=== PATIENT | female | born 1950 | race Caucasian/White ===

== ENCOUNTER 2023-08-09 14:11 | Inpatient (IN) | payer OTHER ==
[2023-08-09] MEDS ORDERED: ASPIRIN 81 MG CHEWABLE TABLET ONE (14:37)
[2023-08-09 14:40] LABS: Absolute Eosinophils 0.3 K/uL (0-0.5); Absolute Lymphocytes (CBC) 1.7 K/uL (0.7-4.9); Absolute Monocytes 0.9 K/uL (0.1-1.3); Basophils % 0.6 % (0-1.3); Eosinophils % 3.4 % (0-4.4); Hematocrit 39.7 % (36.0-45.0); Lymphocytes % 21.5 % (15.3-44.8); MCH 29.2 pg (27.0-35.0); MCHC 32.8 g/dL (32.0-36.0); MCV 89.1 fL (80-100); MPV 8.9 fL (7.6-11.3); Neutrophils % 63.5 % (41.7-73.7); Nucleated Red Blood Cells % 0.2 % (0-0); Platelets 121 thou/uL (152-406); RBC Red Blood Cell Count 4.46 M/uL (3.86-4.86); Red Cell Distribution Width 15.5 % (12.1-15.2)
[2023-08-09 14:59] LABS: Anion Gap 9.3 mEq/L (5.0-15.0)
[2023-08-09 15:01] LABS: Potassium 3.3 mEq/L (3.5-5.1)
--- NOTE | 2023-08-09 15:54 | RAD REPORT ---
EXAM DESCRIPTION: CT - Chest For Pe Angio - 08/09/2023 3:21 pm CLINICAL HISTORY: Chest pain COMPARISON: None. TECHNIQUE: Dynamically enhanced axial 3 mm thick images of the chest were obtained during administra tion of 100 mL Isovue 370 IV contrast. Coronal and oblique reconstruction images were generated and r eviewed. Exam utilizes a protocol for optimal evaluation of pulmonary arterial tree. Maximum intensity projections 3D imaging was utilized All CT scans are performed using dose optimization technique as appropriate and may include automated exposure control or mA/KV adjustment according to patient size. FINDINGS: A pulmonary embolus is not seen. A thoracic aortic aneurysm is not noted. A pleural effusion is not seen. A pericardial effusion is not seen. A lung consolidation is not present. A cirrhotic liver. Splenomegaly IMPRESSION: Negative for a pulmonary embolism.
--- NOTE | 2023-08-09 16:31 | RAD REPORT ---
EXAM DESCRIPTION: Anuel Single View08/09/2023 2:53 pm CLINICAL HISTORY: Chest pain COMPARISON: 2010 FINDINGS: The lungs appear clear of acute infiltrate. The heart is moderately enlarged IMPRESSION: No acute abnormalities displayed
--- NOTE | 2023-08-09 16:49 | EDPHYS ---
Physician Documentation [facility] Name: Liana Mcdonald Age: 72 yrs Sex: Female : 1950 Arrival Date: 08/09/2023 Time: 14:11 Bed 17 Private MD: ED Physician Matthias Ayala HPI: 08/08 14:35 This 72 yrs old Female presents to ER via EMS with complaints of Chest Pain. ec2 14:35 Patient arrives today for evaluation of left-sided intermittent chest pain ongoing for ec2 several weeks along with left arm numbness. Patient reports the left arm numbness started this afternoon. Patient reports no falls injuries or trauma. Complains of some tingling associated with this as well. Patient reports no difficulty breathing, no leg swelling. Patient reports history of hypertension, no known cardiac disease.. Historical: - Allergies: 14:25 No Known Allergies; jl7 - Home Meds: 14:25 None [Active]; jl7 - PMHx: 14:25 Hypertensive disorder; jl7 - Immunization history:: Adult Immunizations unknown. - Infectious Disease History:: Denies. - Social history:: Smoking status: Patient denies any tobacco usage or history of. ROS: 14:35 Constitutional: as per hpi ec2 Exam: 14:35 Constitutional: GEN: NAD Head: atraumatic Eyes: EOMI Ears: External ears are ec2 normal. CV: regular rate LUNGS: no respiratory distress ABD: non-distended SKIN: no evidence of rashes MSK: no evidence of trauma NEURO: moves all extremities equally Vital Signs: 14:23 BP 174 / 77; Pulse 99; Resp 19; Pulse Ox 97% ; Weight 87.09 kg; Height 5 ft. 3 in. ; jl7 Pain 8/10; 14:54 BP 151 / 77; Pulse 94; Resp 19 S; Pulse Ox 94% on R/A; kc6 15:36 BP 206 / 79; Pulse 84; Resp 18 S; Pulse Ox 94% on R/A; kc6 16:10 BP 157 / 72; kc6 17:23 BP 155 / 68; Pulse 90; Resp 19 S; Pulse Ox 98% on R/A; kc6 18:35 BP 151 / 71; Pulse 92; Resp 19 S; Pulse Ox 95% on R/A; kc6 14:23 Body Mass Index 34.01 (87.09 kg, 160.02 cm) jl7 14:23 Pain Scale: Adult jl7 MDM: 14:35 Patient medically screened. ec2 14:35 Data reviewed: vital signs. ED course: Patient arrives today for evaluation of chest ec2 pain and left arm numbness. Examination remarkable for well-appearing nontoxic individual who is otherwise in no acute distress. Obtain lab work, EKG, chest x-ray and CT scan. Evaluating for ACS, PE, dissection. Offered the patient IV pain medications such as morphine however the patient declined at this time and will reconsider if pain changes.. 14:36 ED course: EKG independently reviewed and interpreted by me, shows normal sinus rhythm, ec2 rate of 97, no acute ST segment elevations, intervals are nonconcerning, PVC noted, ST depression noted in V2.. 15:11 ED course: Metabolic profile shows slight hypokalemia, CBC is reassuring, troponin is ec2 within normal ranges. Pending CT imaging and chest x-ray. . 15:11 ED course: Chest x-ray independently reviewed and interpreted by me, shows no acute ec2 intrathoracic process.. 16:40 ED course: CT scan of the chest shows no acute intrathoracic process.. ec2 16:48 ED course: On reassessment patient remains with some residual left arm discomfort. Will ec2 admit for further cardiac evaluation. Discussed case with hospitalist, pending admission. . 16:49 HEART Score: History: Slightly Suspicious (0), ECG: Non specific repolarization ec2 disturbance / LBTB / PM (1), Age: > or = 65 years (2), Risk Factors: > or = 3 Risk factors for atherosclerotic disease (2), Troponin: < or = 1 x Normal Limit (0), Total Score = 5. 08/08 14:27 Order name: Basic Metabolic Panel; Complete Time: 15:11 ec2 08/08 14:27 Order name: CBC with Diff; Complete Time: 15:11 ec2 08/08 14:27 Order name: Troponin HS; Complete Time: 15:11 ec2 08/08 18:21 Order name: Magnesium EDMS 08/08 18:21 Order name: Magnesium EDMS 08/08 18:21 Order name: [place] Screen EDMS 08/08 18:21 Order name: NT PRO-BNP EDMS 08/08 18:21 Order name: Protime (+INR) EDMS 08/08 18:21 Order name: PTT, Activated Partial Thromb EDMS 08/08 18:21 Order name: Thyroid Stimulating Hormone EDMS 08/08 18:21 Order name: CBC with Automated Diff EDMS 08/08 18:21 Order name: CBC with Automated Diff EDMS 08/08 18:21 Order name: CBC with Automated Diff EDMS 08/08 18:21 Order name: CBC with Automated Diff EDMS 08/08 18:21 Order name: CBC with Automated Diff EDMS 08/08 18:21 Order name: Comprehensive Metabolic Panel EDMS 08/08 18:21 Order name: Comprehensive Metabolic Panel EDMS 08/08 18:21 Order name: Comprehensive Metabolic Panel EDMS 08/08 18:21 Order name: Comprehensive Metabolic Panel EDMS 08/08 18:21 Order name: Comprehensive Metabolic Panel EDMS 08/08 18:21 Order name: Lipid Profile EDMS 08/08 18:21 Order name: Lipid Profile EDMS 08/08 18:21 Order name: Troponin High Sensitivity EDMS 08/08 18:21 Order name: Troponin High Sensitivity EDMS 08/08 18:21 Order name: Troponin High Sensitivity EDMS 08/08 14:27 Order name: XRAY Chest (1 view); Complete Time: 16:40 ec2 08/08 14:35 Order name: CT Chest For PE Angio; Complete Time: 16:40 ec2 08/08 18:21 Order name: Head Brain Wo Cont EDMS 08/08 18:21 Order name: Echo with Doppler EDMS 08/08 18:21 Order name: Carotid Artery Bilateral EDMS 08/08 14:27 Order name: EKG; Complete Time: 14:28 ec2 08/08 18:21 Order name: CONS Physician Consult EDMS 08/08 14:27 Order name: Cardiac monitoring; Complete Time: 14:29 ec2 08/08 14:27 Order name: EKG - Nurse/Tech; Complete Time: 14:29 ec2 08/08 14:27 Order name: IV Saline Lock; Complete Time: 14:31 ec2 08/08 14:27 Order name: Labs collected and sent; Complete Time: 14:31 ec2 08/08 14:27 Order name: O2 Per Protocol; Complete Time: 14:29 ec2 08/08 14:27 Order name: O2 Sat Monitoring; Complete Time: 14:29 ec2 Administered Medications: 14:47 Drug: Aspirin PO Chewable Tablet 324 mg PO once; 81 mg tablets x 4 Route: PO; jl7 15:36 Follow up: Response: No adverse reaction kc6 Disposition Summary: 08/09/23 16:48 Hospitalization Ordered Notes: Hospitalization Status: Inpatient Admission ec2 Provider: Jori Stauffer ec2 Location: Telemetry/MedSurg (observation) ec2 Condition: Stable ec2 Problem: new ec2 Symptoms: are unchanged ec2 Bed/Room Type: Standard ec2 Room Assignment: 207(08/09/23 18:22) eb Diagnosis - Chest pain, unspecified ec2 Forms: - Medication Reconciliation Form ec2 - SBAR form ec2 - Leadership Thank You Letter ec2 Signatures: Dispatcher [employer] Mazin Cuevas RN RN jl7 Jaci Cobb Edwin, MD MD ec2 Arcelia Fontanez RN kc6 Corrections: (The following items were deleted from the chart) 16:50 14:36 ED course: EKG independently reviewed and interpreted by me, shows normal sinus ec2 rhythm, rate of 97, no acute ST segment elevations, intervals are nonconcerning, PVC noted. . ec2 18:22 16:48 ec2 eb
--- NOTE | 2023-08-09 16:49 | ER ---
Nurse's Notes [facility] Name: Liana Mcdonald Age: 72 yrs Sex: Female : 1950 Arrival Date: 08/09/2023 Time: 14:11 Bed 17 Private MD: Diagnosis: Chest pain, unspecified Presentation: 08/08 14:23 Chief complaint: EMS states: Left sided CP x 3 days with Left sided arm numbness and jl7 tingling. rated 8/10 at this time. Coronavirus screen: At this time, the client does not indicate any symptoms associated with coronavirus-19. Ebola Screen: No symptoms or risks identified at this time. Initial Sepsis Screen: Does the patient meet any 2 criteria? No. Patient's initial sepsis screen is negative. Does the patient have a suspected source of infection? No. Patient's initial sepsis screen is negative. Risk Assessment: Do you want to hurt yourself or someone else? Patient reports no desire to harm self or others. Onset of symptoms was August 06, 2023. Care prior to arrival: None. 14:23 Method Of Arrival: EMS: [facility] jl7 14:23 Acuity: DEMETRIA 2 jl7 Triage Assessment: 14:25 General: Appears in no apparent distress. uncomfortable, Behavior is cooperative, jl7 appropriate for age, anxious. Pain: Complains of pain in anterior aspect of left upper chest Pain radiates to left arm Pain currently is 8 out of 10 on a pain scale. Quality of pain is described as sharp, tingling, Pain began 2-3 days ago. Is continuous. Neuro: Level of Consciousness is awake, alert, obeys commands, Oriented to person, place, time, situation. Cardiovascular: Patient's skin is warm and dry. Respiratory: Airway is patent Respiratory effort is even, unlabored, Respiratory pattern is regular, symmetrical. Derm: Skin is pink, warm \T\ dry. Historical: - Allergies: 14:25 No Known Allergies; jl7 - Home Meds: 14:25 None [Active]; jl7 - PMHx: 14:25 Hypertensive disorder; jl7 - Immunization history:: Adult Immunizations unknown. - Infectious Disease History:: Denies. - Social history:: Smoking status: Patient denies any tobacco usage or history of. Screenin:47 [facility] ED Fall Risk Assessment (Adult) History of falling in the last 3 months, jl7 including since admission No falls in past 3 months (0 pts) Confusion or Disorientation No (0 pts) Intoxicated or Sedated No (0 pts) Impaired Gait No (0 pts) Mobility Assist Device Used No (0 pt) Altered Elimination No (0 pt) Score/Fall Risk Level 0 - 2 = Low Risk Oriented to surroundings, Maintained a safe environment. Abuse screen: Denies threats or abuse. Denies injuries from another. Nutritional screening: No deficits noted. Tuberculosis screening: No symptoms or risk factors identified. Assessment: 14:53 General: Appears in no apparent distress. uncomfortable, well groomed, well developed, kc6 Behavior is calm, cooperative, appropriate for age. Pain: Complains of pain in chest and left arm. Neuro: Level of Consciousness is awake, alert, obeys commands, Oriented to person, place, time, situation, Appropriate for age Reports numbness in left arm paresthesias in left arm. Cardiovascular: Reports chest pain, Denies palpitations, shortness of breath, Heart tones S1 S2 present Capillary refill < 3 seconds Rhythm is sinus rhythm with unifocal PVCs. Respiratory: Airway is patent Trachea midline Respiratory effort is even, unlabored, Respiratory pattern is regular, symmetrical. GI: No signs and/or symptoms were reported involving the gastrointestinal system. : No signs and/or symptoms were reported regarding the genitourinary system. EENT: No signs and/or symptoms were reported regarding the EENT system. Derm: No signs and/or symptoms reported regarding the dermatologic system. Skin is intact, is healthy with good turgor, Skin is pink, warm \T\ dry. Musculoskeletal: No signs and/or symptoms reported regarding the musculoskeletal system. Circulation, motion, and sensation intact. Capillary refill < 3 seconds, Range of motion: intact in all extremities. 15:36 Reassessment: Patient appears in no apparent distress at this time. No changes from kc6 previously documented assessment. Patient and/or family updated on plan of care and expected duration. Pain level reassessed. Patient is alert, oriented x 3, equal unlabored respirations, skin warm/dry/pink. 16:36 Reassessment: Patient appears in no apparent distress at this time. No changes from kc6 previously documented assessment. Patient and/or family updated on plan of care and expected duration. Pain level reassessed. Patient is alert, oriented x 3, equal unlabored respirations, skin warm/dry/pink. 17:23 Reassessment: Patient appears in no apparent distress at this time. No changes from kc6 previously documented assessment. Patient and/or family updated on plan of care and expected duration. Pain level reassessed. Patient is alert, oriented x 3, equal unlabored respirations, skin warm/dry/pink. 18:35 Reassessment: Patient appears in no apparent distress at this time. No changes from kc6 previously documented assessment. Patient and/or family updated on plan of care and expected duration. Pain level reassessed. Patient is alert, oriented x 3, equal unlabored respirations, skin warm/dry/pink. Vital Signs: 14:23 BP 174 / 77; Pulse 99; Resp 19; Pulse Ox 97% ; Weight 87.09 kg; Height 5 ft. 3 in. ; jl7 Pain 8/10; 14:54 BP 151 / 77; Pulse 94; Resp 19 S; Pulse Ox 94% on R/A; kc6 15:36 BP 206 / 79; Pulse 84; Resp 18 S; Pulse Ox 94% on R/A; kc6 16:10 BP 157 / 72; kc6 17:23 BP 155 / 68; Pulse 90; Resp 19 S; Pulse Ox 98% on R/A; kc6 18:35 BP 151 / 71; Pulse 92; Resp 19 S; Pulse Ox 95% on R/A; kc6 14:23 Body Mass Index 34.01 (87.09 kg, 160.02 cm) jl7 14:23 Pain Scale: Adult jl7 ED Course: 14:23 Patient arrived in ED. jl7 14:25 Triage completed. jl7 14:25 Arm band placed on right wrist. EKG completed in triage. Results shown to MD. jl7 14:26 Matthias Ayala MD is Attending Physician. ec2 14:26 Patient has correct armband on for positive identification. Placed in gown. Bed in low jl7 position. Call light in reach. Side rails up X2. Client placed on continuous cardiac and pulse oximetry monitoring. NIBP monitoring applied. monitor technician on. 14:30 Arcelia Fontanez RN is Primary Nurse. kc6 14:30 Inserted saline lock: 20 gauge in right antecubital area, using aseptic technique. kc6 Blood collected. 14:47 Provided Education on: use of call goodwin. jl7 14:55 XRAY Chest (1 view) In Process Unspecified. EDMS 15:23 CT Chest For PE Angio In Process Unspecified. EDMS 16:48 Jori Stauffer MD is Hospitalizing Provider. ec2 17:04 Judith Dickson [facility]-C [facility] Administered Medications: 14:47 Drug: Aspirin PO Chewable Tablet 324 mg PO once; 81 mg tablets x 4 Route: PO; jl7 15:36 Follow up: Response: No adverse reaction kc6 Outcome: 16:48 Decision to Hospitalize by Provider. ec2 19:35 Admitted to Med/surg accompanied by tech, family with patient, via wheelchair, room tl4 207, 19:35 Condition: stable 19:35 Instructed on the need for admit, 19:36 Patient left the ED. tl4 Signatures: Dispatcher [employer] EDWA Judith Dickson FNP-C [employer] SUPER[employer]OR-[employer]nw Mazin Gruber RN RN jl7 Arcelia Fontanez RN RN kc6 Matthias Ayala MD MD ec2 Braden Sue RN RN tl4 Corrections: (The following items were deleted from the chart) 14:48 14:47 O2 via room air jl7 jl7
--- NOTE | 2023-08-09 17:50 | P.HP ---
Certification for Inpatient Patient admitted to: Inpatient With expected LOS: >2 Midnights Patient will require the following post-hospital care: None Practitioner: I am a practitioner with admitting privileges, knowledge of patient current condition, hospital course, and medical plan of care. Services: Services provided to patient in accordance with Admission requirements found in Title 42 Section 412.3 of the Code of Federal Regulations <Judith Dickson - Last Filed: 08/09/23 17:32> Patient History Date of Service: 08/09/23 Primary Care Provider: None Reason for admission: Chest pain History of Present Illness: Ms. Mcdonald is a 72-year-old female with a past medical history of hypertension, probable CHF, and GERD. She has not seen a doctor in greater than 2 years since her PCP retired. She states she does not like to take medicine so has not taken any in several years. She thinks she might of taken metoprolol and Lasix in the past. She and her granddaughter note that she has had an upper respiratory infection over the past week and Ms. Mcdonald notes intermittent left-sided sharp chest pain. She states she becomes sweaty, short of breath, and has nausea and vomiting at the time of chest pain. At 1220 today she awoke and her left arm felt heavy and tingly she states that sensation has not ceased. On exam she is in no distress, appears slightly jaundiced, is persistently coughing, and has mild JVD. Laboratory evaluation in the emergency department revealed a normal CBC except for a slightly decreased platelet count of 121, Chem-7 only remarkable for potassium 3.3, troponin 17. Imaging reveals "the lungs appear clear of acute infiltrate. The heart is moderately enlarged." A PE study was performed and was negative for thrombus but showed splenomegaly and a cirrhotic appearing liver. Ms. Mcdonald states she has never imbibed alcohol or smoked cigarettes and was unaware of any changes in her liver. Her EKG is sinus rhythm with occasional PVCs, of note QTc is 513. She denies palpitations. She will be admitted for further investigation and treatment with consult to cardiology. Home medications list reviewed: Yes (none - occasional BC powder) - Past Medical/Surgical History Has patient received pneumonia vaccine in the past: No Diabetic: No -: HTN -: remote hx of uterine cancer -: hysterectomy with partial colon resection -: Appendectomy Psychosocial/ Personal History: Ms. Mcdonald lives in an elevated home that requires 17 steps to enter. She does have a walker and a cane which she uses occasionally. She lives with her fianc and one of her granddaughters and her children. - Social History Smoking Status: Never smoker Alcohol use: No CD- Drugs: No Caffeine use: Yes Place of Residence: Home <Judith Dicksonlen - Last Filed: 08/09/23 17:32> Date of Service: 08/09/23 <Jori Stauffer - Last Filed: 08/09/23 21:06> Allergies No Known Allergies Allergy (Unverified 08/09/23 19:33) Home Medications: NK [No Home Meds] 08/09/23 Review of Systems 10-point ROS is otherwise unremarkable General: As per HPI Respiratory: As per HPI Cardiovascular: As per HPI Gastrointestinal: As per HPI Musculoskeletal: As per HPI Neurological: As per HPI <Judith Dicksonlen - Last Filed: 08/09/23 17:32> Physical Examination - Vital Signs Blood Pressure: 155/68 Pulse: 84 Respirations: 14 Pulse Ox (%): 96 - Physical Exam General: Alert, In no apparent distress, Oriented x3, Cooperative, Obese HEENT: Atraumatic, Normocephalic Neck: Supple, JVD distended (mild) Respiratory: Normal air movement, Other (Harsh cough) Cardiovascular: Regular rate/rhythm, Normal S1 S2, Edema (Minimal) Capillary refill: <2 Seconds Gastrointestinal: Normal bowel sounds Musculoskeletal: No clubbing Integumentary: Other (Mildly jaundiced) Neurological: Normal speech, Normal tone, Other (GCS 15, NIHSS 1) Lymphatics: No axilla or inguinal lymphadenopathy External genitalia: Deferred Rectal: Deferred - Studies Laboratory Data (last 24 hrs) 08/09/23 08/09/23 14:31 14:31 WBC 8.00 Hgb 13.0 Hct 39.7 Plt Count 121 L Sodium 136 Potassium 3.3 L BUN 12 Creatinine 0.98 Glucose 121 H <Judith Dickson Tien - Last Filed: 08/09/23 17:32> - Studies Laboratory Data (last 24 hrs) 08/09/23 08/09/23 14:31 14:31 WBC 8.00 Hgb 13.0 Hct 39.7 Plt Count 121 L Sodium 136 Potassium 3.3 L BUN 12 Creatinine 0.98 Glucose 121 H <Jori Stauffer - Last Filed: 08/09/23 21:06> Assessment and Plan - Plan Chest pain: 1. Serial troponins and EKG 2. Appreciate consultation from cardiology 3. Echocardiogram and stress test if cardiology is agreeable 4. enteric-coated aspirin 81 mg p.o 5. IV morphine for pain control prn Cough/URI Albuterol/atrovent nebs monospot Headache/Paresthesias of left arm thrombocytopenia CT head Carotid doppler HTN Metoprolol 25 mg p.o. twice daily HLD Atorvastatin 40mg po q hs Fluid overload Lasix 20mg po daily monitor and replete electrolytes BNP Hypokalemia Magnesium level Klor Con 20mg po daily Cirrhosis/splenomegaly avoid hepatotoxins monitor platelets, bleeding GI prophylaxis Protonix 40mg IVPB Hold Lovenox until post CT head, SCDs for now - Advance Directives Does patient have a Living Will: No Does patient have a Durable POA for Healthcare: No - Code Status/Comfort Care Code Status Assessed: Yes (Full) <Judith Dickson - Last Filed: 08/09/23 17:32> Physician Review Additional Text: Pt seen and examined. I agree with the note by the FIXER SUPERVISOR. Pt is a 72 yo female with past medical history of Htn who presents with chest pain. The left sided chest pain radiates to the left arm intermittently with severity of 5/10. The chest pain progressively worsened and became associated with left arm numbness. On admission, lab studies show wbc 8, hgb 13, K 3.3, Cr 0.98. EKG shows NSR. At bedside, pt is in NAD. A/P: Chest pain: Will r/o ACS. Troponin is 17. Will trend troponin Q6h. Continue LALA therapy. Will f/u Echo and consult Cardiology. Paresthesia: Will f/u CT head, carotid ultrasound and Echo. Continue aspirin and atorvastatin. Htn: Will continue home DVT ppx: SCD Code: full <Jori Stauffer - Last Filed: 08/09/23 21:06>
[2023-08-09] MEDS ORDERED: SODIUM CHLORIDE 0.9% 10ML INJ IV PRN (18:06)
[2023-08-09] MEDS ORDERED: MORPHINE 2 MG/ML SYR IV PRN (18:06)
--- NOTE | 2023-08-09 19:31 | RAD REPORT ---
EXAM DESCRIPTION: USCarotid Artery Bilateral08/09/2023 6:53 pm CLINICAL HISTORY: Numbness COMPARISON: None FINDINGS: The velocity of the right internal carotid artery equals 74 cm/sec. The right ICA/CCA rati o .9 The velocity of the left internal carotid artery equals 132 cm/sec. The left ICA/CCA ratio 2 Minimal plaque is present within the carotid arteries The left internal carotid artery is tortuous The vertebral arteries demonstrate antegrade flow NASCET criteria used. Mild 0-49% stenosis Moderate 50-69% stenosis Severe 70-99% stenosis IMPRESSION: The left internal carotid artery is tortuous. This likely accounts for the elevation of the velocity. There does not appear to be a significant stenosis. Minimal plaque within the carotid arteries
[2023-08-09 19:50] LABS: PT Prothrombin Time 13.7 SECONDS (9.5-12.5); PTT, Activated Partial Thromb 34.2 SECONDS (24.3-36.9); Protime INR 1.25
[2023-08-09 20:05] LABS: Thyroid Stimulating Hormone 2.06 uIU/mL (0.358-3.740)
[2023-08-09 20:27] LABS: Monoscreen NEG (NEG)
[2023-08-09] MEDS: ATORVASTATIN 40 MG TAB PO SCH (21:05)
[2023-08-09] MEDS: METOPROLOL TAR 25 MG TAB PO SCH (21:05)
[2023-08-09] MEDS: IPRATROPIUM BROM 0.5MG/2.5ML NEB SCH (21:22)
[2023-08-09] MEDS: ALBUTEROL 2.5 MG/3 ML NEB SOL NEB SCH (21:22)
[2023-08-09 21:51] VITALS: BMI 34.0
[2023-08-10] MEDS: AMLODIPINE 5 MG TAB PO SCH (01:27)
[2023-08-10 04:24] LABS: Absolute Eosinophils 0.3 K/uL (0-0.5); Absolute Lymphocytes (CBC) 1.9 K/uL (0.7-4.9); Absolute Neutrophil 5.3 K/uL (1.8-8.0); Basophils % 0.6 % (0-1.3); Eosinophils % 3.9 % (0-4.4); Hematocrit 34.4 % (36.0-45.0); Hemoglobin 11.6 g/dL (12.0-15.0); Lymphocytes % 22.2 % (15.3-44.8); MCH 29.8 pg (27.0-35.0); MCHC 33.7 g/dL (32.0-36.0); MCV 88.3 fL (80-100); MPV 9.3 fL (7.6-11.3); Monocytes % 11.3 % (3.3-12.3); Platelets 108 thou/uL (152-406); Red Cell Distribution Width 15.6 % (12.1-15.2)
[2023-08-10 04:47] LABS: Albumin 2.6 g/dL (3.4-5.0); Albumin/Globulin Ratio 0.5 (1.1-1.8); Anion Gap 5.3 mEq/L (5.0-15.0); Globulin 5.2 g/dL (2.3-3.5); Phosphorus 3.9 mg/dL (2.5-4.9); Potassium 3.3 mEq/L (3.5-5.1); Protein, Total 7.8 g/dL (6.4-8.2); Troponin High Sensitivity 20.8 pg/mL (<58.9)
[2023-08-10] MEDS: POTASSIUM CL SA 10 MEQ TAB PO ONE (08:28)
[2023-08-10] MEDS: ASPIRIN EC 81 MG TAB PO SCH (08:28)
[2023-08-10] MEDS: POTASSIUM CL SA 10 MEQ TAB PO SCH (08:28)
[2023-08-10] MEDS: FOLIC ACID 1 MG TABLET PO SCH (08:28)
[2023-08-10] MEDS: PANTOPRAZOLE 40 MG INJ IVP SCH (08:29)
[2023-08-10] MEDS: FUROSEMIDE 20 MG TABLET PO SCH (08:29)
--- NOTE | 2023-08-10 08:35 | RAD REPORT ---
EXAM DESCRIPTION: CT - Head Brain Wo Cont - 08/10/2023 8:26 am CLINICAL HISTORY: off balance, headache, paresthesias Headache, drowsiness, COMPARISON: Chest For Pe Angio dated 08/09/2023 TECHNIQUE: All CT scans are performed using dose optimization technique as appropriate and may inclu de automated exposure control or mA/KV adjustment according to patient size. FINDINGS: No intracranial hemorrhage, hydrocephalus or extra-axial fluid collection.No areas of brai n edema or evidence of midline shift. Small mild fluid is seen in both maxillary antra. The paranasal sinuses and mastoids are otherwise cl ear. The calvarium is intact. IMPRESSION: No acute intracranial abnormality.
[2023-08-10] MEDS: PNEUMOCOCCAL VACCINE 0.5 ML IMVAC ONE (09:49)
[2023-08-10] MEDS ORDERED: ACETAMINOPHEN 325 MG TABLET PO PRN (10:38)
--- NOTE | 2023-08-10 11:49 | P.PN ---
Subjective Date of Service: 08/10/23 Primary Care Provider: None Chief Complaint: Chest pain Subjective: Improving (still coughing but no pain) <Judith Dicksonlen - Last Filed: 08/10/23 11:44> Date of Service: 08/10/23 <Jori Stauffer - Last Filed: 08/10/23 12:15> Review of Systems 10-point ROS is otherwise unremarkable General: As per HPI ENT: As per HPI Respiratory: Cough Cardiovascular: As per HPI Neurological: As per HPI (paresthesia to left arm largely absent today, numbness only to pincer area) <Judith Dicksonlen - Last Filed: 08/10/23 11:44> Physical Examination - Vital Signs Temperature: 98.6 F Blood Pressure: 166/77 Pulse: 78 Respirations: 18 Pulse Ox (%): 93 - Physical Exam General: Alert, In no apparent distress, Oriented x3 HEENT: Atraumatic, Normocephalic Neck: JVD not distended Respiratory: Normal air movement, Expiratory wheezes Cardiovascular: Normal pulses, Regular rate/rhythm Capillary refill: <2 Seconds Gastrointestinal: Soft and benign Musculoskeletal: No clubbing Integumentary: No rashes Neurological: Normal speech, Normal tone, Normal affect Lymphatics: No axilla or inguinal lymphadenopathy External genitalia: Deferred Rectal: Deferred - Studies Laboratory Data (last 24 hrs) 08/09/23 08/09/23 14:31 14:31 WBC 8.00 Hgb 13.0 Hct 39.7 Plt Count 121 L Sodium 136 Potassium 3.3 L BUN 12 Creatinine 0.98 Glucose 121 H <Judith Dicksonlen - Last Filed: 08/10/23 11:44> - Studies Laboratory Data (last 24 hrs) 08/09/23 08/09/23 14:31 14:31 WBC 8.00 Hgb 13.0 Hct 39.7 Plt Count 121 L Sodium 136 Potassium 3.3 L BUN 12 Creatinine 0.98 Glucose 121 H <Jori Stauffer - Last Filed: 08/10/23 12:15> Assessment And Plan - Plan Chest pain: 1. Serial troponins and EKG 2. Appreciate consultation from cardiology 3. Echocardiogram and stress test if cardiology is agreeable 4. enteric-coated aspirin 81 mg p.o 5. IV morphine for pain control prn Cough/URI Albuterol/atrovent nebs monospot Headache/Paresthesias of left arm thrombocytopenia 08/10/23 CT head (results pending) Carotid doppler (results pending) HTN Metoprolol 25 mg p.o. twice daily HLD Atorvastatin 40mg po q hs Fluid overload Lasix 20mg po daily monitor and replete electrolytes BNP Hypokalemia Magnesium level Klor Con 20mg po daily Cirrhosis/splenomegaly avoid hepatotoxins monitor platelets, bleeding GI prophylaxis Protonix 40mg IVPB Hold Lovenox until post CT head, SCDs for now <Judith Dickson - Last Filed: 08/10/23 11:44> - Plan Pt seen and examined. I agree withe the note by the BUTTON BUTTONHOLE MARKER. Pt reports that the numbness of her LUE has resolved. Carotid ultrasound showed tortuous left ICA without any stenosis. CT head is pending. Troponin is negative x 3. Will do Echo. <Jori Stauffer - Last Filed: 08/10/23 12:15>
--- NOTE | 2023-08-10 19:58 | P.CNS ---
Date of Consult: 08/10/23 Primary Care Provider: None Chief Complaint: Chest pain History of Present Illness: Patient with PMH of HTN maybe CHF presented with worsening Chest pain for one week duration, pressure in nature, left side, last for minutes rated as 8 out of 10 when it happens, also associated with SCHWARTZ, no edema, no syncope. Allergies No Known Allergies Allergy (Unverified 08/09/23 19:33) Home Medications: NK [No Home Meds] 08/09/23 - Past Medical/Surgical History Diabetic: No -: HTN -: remote hx of uterine cancer -: hysterectomy with partial colon resection -: Appendectomy Psychosocial/ Personal History: Ms. Mcdonald lives in an elevated home that requires 17 steps to enter. She does have a walker and a cane which she uses occasionally. She lives with her fianc and one of her granddaughters and her children. - Social History Alcohol use: No CD- Drugs: No Caffeine use: Yes Place of Residence: Home Review of Systems 10-point ROS is otherwise unremarkable Physical Examination Temp Pulse Resp BP Pulse Ox 97.9 F 79 16 169/68 H 93 08/10/23 16:00 08/10/23 17:42 08/10/23 16:00 08/10/23 17:42 08/10/23 16:00 General: Alert, Oriented x3 HEENT: Atraumatic Neck: Supple Respiratory: Clear to auscultation bilaterally Cardiovascular: No edema, Normal S1 S2 Gastrointestinal: Normal bowel sounds - Problems (1) Unstable angina Current Visit: Yes Status: Acute Plan: will get coronary angiogram saturday ASA 81 mg daily Lipitor 40 mg daily (2) HTN (hypertension) Current Visit: Yes Status: Acute Plan: BP is poorly controlled increase Lorpessor to 50 mg po BID Continue Norvasc 5 mg daily Continue Lasix 20 mg daily (3) SOB (shortness of breath) Current Visit: Yes Status: Acute Plan: get Echo
[2023-08-11 03:22] LABS: Absolute Eosinophils 0.4 K/uL (0-0.5); Absolute Lymphocytes (CBC) 2.5 K/uL (0.7-4.9); Absolute Monocytes 0.8 K/uL (0.1-1.3); Absolute Neutrophil 4.9 K/uL (1.8-8.0); Basophils % 0.5 % (0-1.3); Eosinophils % 4.3 % (0-4.4); Hematocrit 35.8 % (36.0-45.0); Hemoglobin 11.7 g/dL (12.0-15.0); Lymphocytes % 28.6 % (15.3-44.8); MCH 29.2 pg (27.0-35.0); MCHC 32.8 g/dL (32.0-36.0); MCV 89.1 fL (80-100); MPV 9.1 fL (7.6-11.3); Monocytes % 9.7 % (3.3-12.3); Neutrophils % 56.9 % (41.7-73.7); Platelets 116 thou/uL (152-406); RBC Red Blood Cell Count 4.01 M/uL (3.86-4.86); Red Cell Distribution Width 15.5 % (12.1-15.2)
[2023-08-11 03:44] LABS: Albumin 2.5 g/dL (3.4-5.0); Albumin/Globulin Ratio 0.5 (1.1-1.8); Anion Gap 4.5 mEq/L (5.0-15.0); Bilirubin Total 0.9 mg/dL (0.2-1.0); Globulin 5.2 g/dL (2.3-3.5); Potassium 3.5 mEq/L (3.5-5.1); Protein, Total 7.7 g/dL (6.4-8.2)
[2023-08-11 03:57] LABS: Magnesium 1.8 mg/dL (1.6-2.4)
[2023-08-11] MEDS: MAGNESIUM SULFATE 1 gm IVPB 1 GM/100 ML BAG IV ONE (04:32)
[2023-08-11] MEDS: METOPROLOL TAR 25 MG TAB PO SCH (05:28)
[2023-08-11] MEDS: POTASSIUM CL SA 10 MEQ TAB PO ONE (08:28)
--- NOTE | 2023-08-11 08:56 | P.PN ---
Subjective Date of Service: 08/11/23 Primary Care Provider: None Chief Complaint: Chest pain Subjective: Improving (hoarse voice, denies SOB, + cough, chest pain largely resolved) <Tamanna Dicksony Tien - Last Filed: 08/11/23 08:50> Date of Service: 08/11/23 <Jori Stauffer - Last Filed: 08/11/23 10:21> Review of Systems 10-point ROS is otherwise unremarkable General: As per HPI Respiratory: As per HPI Cardiovascular: As per HPI Neurological: As per HPI <DicksonTamannacharbel Chauhan - Last Filed: 08/11/23 08:50> Physical Examination - Vital Signs Temperature: 97.2 F Blood Pressure: 168/78 Pulse: 81 Respirations: 16 Pulse Ox (%): 93 - Physical Exam General: Alert, In no apparent distress, Oriented x3 HEENT: Atraumatic, Normocephalic, Other (Hoarse) Neck: Supple Respiratory: Normal air movement Cardiovascular: Normal pulses, Regular rate/rhythm Capillary refill: <2 Seconds Gastrointestinal: Soft and benign Musculoskeletal: No clubbing, No swelling Integumentary: No rashes, No breakdown Neurological: Normal gait, Normal speech, Normal tone Lymphatics: No axilla or inguinal lymphadenopathy External genitalia: Deferred Rectal: Deferred <Tamanna Dicksony Tien - Last Filed: 08/11/23 08:50> Assessment And Plan - Plan Chest pain: 1. Serial troponins and EKG 2. Appreciate consultation from cardiology 3. Echocardiogram 4. enteric-coated aspirin 81 mg p.o 5. IV morphine for pain control prn 6. Plan for [facility] 08/12/23 (NPO post [place]) Cough/URI Albuterol/atrovent nebs monospot (negative) Headache/Paresthesias of left arm thrombocytopenia 08/10/23 CT head (results pending) - IMPRESSION: No acute intracranial abnormality. Carotid doppler (results pending) - IMPRESSION: The left internal carotid artery is tortuous. This likely accounts for the elevation of the velocity. There does not appear to be a significant stenosis. HTN Metoprolol 25 mg p.o. twice daily -doubled per Dr. Kristin Henning 5mg po daily HLD Atorvastatin 40mg po q hs Fluid overload Lasix 20mg po daily monitor and replete electrolytes BNP Hypokalemia Magnesium level Klor Con 20mg po daily Cirrhosis/splenomegaly avoid hepatotoxins monitor platelets, bleeding GI prophylaxis Protonix 40mg IVPB Hold Lovenox until post CT head, SCDs for now <Judith Dickson - Last Filed: 08/11/23 08:50> - Plan Pt seen and examined. I agree with the note by the SWITCHGEAR REPAIRER. The numbness in her left hand has resolved. Cardiology will do cardiac cath on Saturday. Continue home meds and trend LFTs. <Jori Stauffer - Last Filed: 08/11/23 10:21>
[2023-08-11] MEDS: HYDROCODONE/CHLORPHEN 5 ML/OSYR PO PRN (12:19)
--- NOTE | 2023-08-11 13:40 | P.PN ---
Subjective Date of Service: 08/11/23 Primary Care Provider: None Chief Complaint: Chest pain Subjective: No new changes Review of Systems 10-point ROS is otherwise unremarkable Physical Examination - Vital Signs Temperature: 97.8 F Blood Pressure: 149/75 Pulse: 73 Respirations: 16 Pulse Ox (%): 93 - Physical Exam General: Alert, Oriented x3 HEENT: Atraumatic Neck: Supple, JVD not distended Respiratory: Clear to auscultation bilaterally, Normal air movement Cardiovascular: Regular rate/rhythm, Normal S1 S2 Gastrointestinal: Normal bowel sounds, No tenderness Assessment And Plan - Current Problems (Diagnosis) (1) Unstable angina Current Visit: Yes Status: Acute Plan: will get coronary angiogram saturday ASA 81 mg daily Lipitor 40 mg daily (2) HTN (hypertension) Current Visit: Yes Status: Acute Plan: BP is poorly controlled continue Lorpessor 50 mg po BID increase Norvasc to 10 mg daily Continue Lasix 20 mg daily (3) SOB (shortness of breath) Current Visit: Yes Status: Acute Plan: get Echo
[2023-08-12 06:34] LABS: Absolute Basophils 0.1 K/uL (0-0.5); Absolute Eosinophils 0.5 K/uL (0-0.5); Absolute Lymphocytes (CBC) 2.8 K/uL (0.7-4.9); Absolute Monocytes 0.9 K/uL (0.1-1.3); Absolute Neutrophil 6.9 K/uL (1.8-8.0); Basophils % 0.5 % (0-1.3); Eosinophils % 4.3 % (0-4.4); Hematocrit 37.5 % (36.0-45.0); Hemoglobin 12.4 g/dL (12.0-15.0); Lymphocytes % 25.2 % (15.3-44.8); MCH 29.5 pg (27.0-35.0); MCV 89.2 fL (80-100); MPV 8.7 fL (7.6-11.3); Monocytes % 7.9 % (3.3-12.3); Neutrophils % 62.1 % (41.7-73.7); Nucleated Red Blood Cells % 0.1 % (0-0); Platelets 166 thou/uL (152-406); RBC Red Blood Cell Count 4.21 M/uL (3.86-4.86); Red Cell Distribution Width 15.4 % (12.1-15.2)
[2023-08-12 06:47] LABS: Albumin 2.9 g/dL (3.4-5.0); Albumin/Globulin Ratio 0.5 (1.1-1.8); Anion Gap 6.8 mEq/L (5.0-15.0); Bilirubin Total 1.1 mg/dL (0.2-1.0); Globulin 5.6 g/dL (2.3-3.5); Potassium 3.8 mEq/L (3.5-5.1); Protein, Total 8.5 g/dL (6.4-8.2)
--- NOTE | 2023-08-12 07:11 | P.PN ---
Subjective Date of Service: 08/12/23 Primary Care Provider: None Chief Complaint: Chest pain Admitted for chest pain, scheduled for left heart cath today, Chest pain controlled with as needed analgesia - Physical Exam General: Alert, In no apparent distress, Oriented x3 HEENT: Atraumatic, Normocephalic, Other (Hoarse) Neck: Supple Respiratory: Normal air movement Cardiovascular: Normal pulses, Regular rate/rhythm Capillary refill: <2 Seconds Gastrointestinal: Soft and benign Musculoskeletal: No clubbing, No swelling Integumentary: No rashes, No breakdown Neurological: Normal gait, Normal speech, Normal tone Lymphatics: No axilla or inguinal lymphadenopathy Review of Systems Per HPI Physical Examination - Vital Signs Temperature: 98.2 F Blood Pressure: 169/83 Pulse: 85 Respirations: 15 Pulse Ox (%): 91 Assessment And Plan - Plan Assessment And Plan Unstable angina Trend troponins, trend BNP Current Visit: Yes Status: Acute Cardiology following will get coronary angiogram saturday Plan for [facility] 08/12/23 (NPO post [place]) ASA 81 mg daily Lipitor 40 mg daily As needed morphine BNP 196, serial troponins negative Hypokalemia Trend electrolytes replace as needed HTN (hypertension Current Visit: Yes Status: Acute Plan: BP is poorly controlled continue Lorpessor 50 mg po BID increase Norvasc to 10 mg daily Continue Lasix 20 mg daily Acute hypoxic respiratory failure lack and likely secondary to decompensated heart failure SOB (shortness of breath) Current Visit: Yes Status: Acute Plan: get Echo DuoNebs, O2 2 L keep sats greater than 92% Monospot negative Transaminitis Cirrhosis, splenomegaly, Monitor platelets, bleeding, liver enzyme - Code Status/Comfort Care Code Status: Full Code Critical Care: No Time Spent Managing PTS Care (In Minutes): 35
[2023-08-12] MEDS ORDERED: HEPA 1000U/500MLS 2,000 UNIT/1,000 ML BAG IV ONE (08:49)
[2023-08-12] MEDS ORDERED: LIDOCAINE 1% 20 ML MDV ONE (08:49)
[2023-08-12] MEDS: NA CHLORIDE 0.9% 500 ML ONE (09:17)
[2023-08-12] MEDS ORDERED: MIDAZOLAM HCL 2 MG/2 ML INJ ONE (09:19)
[2023-08-12] MEDS ORDERED: HEPARIN 5000 UNIT/ML 1 ML VIAL ONE (09:19)
[2023-08-12] MEDS ORDERED: FENTANYL CITR 100 MCG/2 ML ONE (09:19)
[2023-08-12] MEDS ORDERED: ATROPINE SULF 1 MG/10 ML SYR IV ONE (09:19)
[2023-08-12] MEDS ORDERED: VERAPAMIL HCL 10 MG/4 ML VIAL IV ONE (09:19)
[2023-08-12] MEDS ORDERED: CLOPIDOGREL 75 MG TABLET ONE (09:20)
[2023-08-12] MEDS ORDERED: TICAGRELOR 90 MG TABLET PO ONE (09:20)
[2023-08-12] MEDS ORDERED: HEPARIN 10,000 UNIT/10 ML VIAL IV ONE (09:20)
[2023-08-12] MEDS ORDERED: ASPIRIN 325 MG TAB ONE (09:20)
--- NOTE | 2023-08-12 10:37 | P.PN ---
Subjective Date of Service: 08/12/23 Primary Care Provider: None Chief Complaint: Chest pain Subjective: No new changes Review of Systems 10-point ROS is otherwise unremarkable Physical Examination - Vital Signs Temperature: 97.6 F Blood Pressure: 174/83 Pulse: 67 Respirations: 18 Pulse Ox (%): 90 - Physical Exam General: Alert, In no apparent distress HEENT: Atraumatic, PERRLA, EOMI Neck: Supple, JVD not distended Respiratory: Clear to auscultation bilaterally, Normal air movement Cardiovascular: Regular rate/rhythm, Normal S1 S2 Gastrointestinal: Normal bowel sounds, No tenderness Assessment And Plan - Current Problems (Diagnosis) (1) Unstable angina Current Visit: Yes Status: Acute Plan: coronary angiogram done today and shows normal coronaries and normal filling pre ssure ASA 81 mg daily Lipitor 40 mg daily (2) HTN (hypertension) Current Visit: Yes Status: Acute Plan: BP is poorly controlled continue Lorpessor 50 mg po BID Norvasc to 10 mg daily Add Losartan 25 mg daily D/C Lasix FOLLOW UP IN CLINIC WITH BP log to adjust medications (3) SOB (shortness of breath) Current Visit: Yes Status: Acute Plan: get Echo
--- NOTE | 2023-08-12 12:51 | OP ---
Date of Procedure: 08/12/2023 Surgeon: Daniele Foster Procedures Performed: 1.Selective coronary angiogram. 2.Left heart catheterization. Indication For Procedure: Unstable angina. Complications: None. Estimated Blood Loss: Less than 50 cc. Sedation Time: 20 minutes with 1 of Versed and 50 of fentanyl. Access: Right radial, closed by a TR band. Description Of Procedure: After risks, and benefits, and alternatives were explained to the patient, patient agreed to proceed with procedure and signed informed consent. The patient was brought back to the medical laboratory technologist, prepped and draped in sterile fashion. A time-out was performed. Sedation was admi nistered. A right radial access was obtained using a 6-[place] ultrasound-guided micropuncture techni que. Next, a [place] 4.0 catheter was advanced over the J-wire to the left ventricular cavity. LVEDP was obtained. Pullback did not show any gradient. Same catheter was used for selective coronary ang iogram of the left and right coronary artery systems. At the end of procedure, catheter was removed over a J-wire. Sheath was removed and TR band was applied. The patient was moved back to recovery i n stable condition. Findings: 1.Left main normal. 2.LAD normal. 3.Left circ normal. 4.RCA normal. 5.LVEDP is 10 mmHg. Assessment And Plan: 1.Normal coronaries. 2.Normal filling pressure. Plan will be to continue medical management. JOSE Voice ID: [id number] Report ID: [id number]
--- NOTE | 2023-08-12 13:26 | EKG ---
Test Date: 2023-08-09 Test Time: 14:21:46 Mushroom Grower: RYAN MEASUREMENT RESULTS: Intervals: Rate: 97 [place]: 142 QRSD: 94 QT: 404 QTc: 513 [place]: P: 55 [place]: 142 QRS: 35 T: 67 INTERPRETIVE STATEMENTS: Sinus rhythm with occasional premature ventricular complexes Nonspecific ST abnormality Prolonged QT Abnormal ECG Compared to ECG 02/16/2011 01:35:27 Ventricular premature complex(es) now present ST (T wave) deviation now present Electronically Signed On 08-12-23 13:18:44 CDT by Óscar Parekh
[2023-08-12] MEDS: LOSARTAN POTASSIUM 50 MG TABLET PO SCH (15:35)
[2023-08-12 16:20] VITALS: TEMP 97.3
[2023-08-12 17:05] VITALS: O2SAT 93
[2023-08-12] MEDS: AMLODIPINE 10 MG TAB PO SCH (17:32)
--- NOTE | 2023-08-12 17:34 | P.DS ---
Admission Date: 08/09/23 Discharge Date: 08/13/23 Primary Care Provider: None Disposition: ROUTINE DISCHARGE Discharge Condition: GOOD Reason for Admission: Chest pain Brief History of Present Illness: Ms. Mcdonald is a 72-year-old female with a past medical history of hypertension, probable CHF, and GERD. She has not seen a doctor in greater than 2 years since her PCP retired. She states she does not like to take medicine so has not taken any in several years. She thinks she might of taken metoprolol and Lasix in the past. She and her granddaughter note that she has had an upper respiratory infection over the past week and Ms. Mcdonald notes intermittent left-sided sharp chest pain. She states she becomes sweaty, short of breath, and has nausea and vomiting at the time of chest pain. At 1220 today she awoke and her left arm felt heavy and tingly she states that sensation has not ceased. On exam she is in no distress, appears slightly jaundiced, is persistently coughing, and has mild JVD. Laboratory evaluation in the emergency department revealed a normal CBC except for a slightly decreased platelet count of 121, Chem-7 only remarkable for potassium 3.3, troponin 17. Imaging reveals "the lungs appear clear of acute infiltrate. The heart is moderately enlarged." A PE study was performed and was negative for thrombus but showed splenomegaly and a cirrhotic appearing liver. Ms. Mcdonald states she has never imbibed alcohol or smoked cigarettes and was unaware of any changes in her liver. Her EKG is sinus rhythm with occasional PVCs, of note QTc is 513. She denies palpitations. She will be admitted for further investigation and treatment with consult to cardiology. Home medications list reviewed: Yes (none - occasional BC powder) - Physical Exam General: Alert, In no apparent distress, Oriented x3, Cooperative, Obese HEENT: Atraumatic, Normocephalic Neck: Supple, JVD distended (mild) Respiratory: Normal air movement, Other (Harsh cough) Cardiovascular: Regular rate/rhythm, Normal S1 S2, Edema (Minimal) Capillary refill: <2 Seconds Gastrointestinal: Normal bowel sounds Musculoskeletal: No clubbing Integumentary: Other (Mildly jaundiced) Neurological: Normal speech, Normal tone, Other (GCS 15, NIHSS 1) Lymphatics: No axilla or inguinal lymphadenopathy Hospital Course: 72 year-old patient with a past medical history of hypertension, probable CHF, and GERD. She has not seen a doctor in greater than 2 years presented with left-sided sharp chest pain. She was evaluated by cardiology, is status post a heart cath Dr Foster 08/11 shows normal coronaries and normal filling pressure. Was noted to have poorly controlled hypertension. Plan to resume blood pressure medications. Condition improved with resumption of antihypertensive medications. Patient tolerating diet, stable for discharge to home with follow- up appointment with primary care physician. Follow-up with cardiology after discharge PROBLEM: Chest pain Normal heart cath Dr Foster 08/11 shows normal coronaries and normal filling pressure. Resume home medications aspirin 81 mg, Lipitor 40 mg, Norvasc 10 mg, add losartan 25 mg, DC Lasix Instructed patient to keep blood pressure log, bring to cardiology appointment. Migraine Rad/Lab/Micro: USCarotid Artery Bilateral08/09/2023 carotid arteries ultrasound Minimal plaque within the carotid arteries CTA of the chest IMPRESSION: Negative for a pulmonary embolism CT of the head IMPRESSION: No acute intracranial abnormality Lipid panel was unremarkable, HDL was mildly low at 34 Serial troponins were negative GOAL: Clear understanding of disease process INSTRUCTIONS: Physician Discharge Instructions: -Follow-up with PCP in 1 to 2 weeks -Please call Dr. Franks at [phone] if any questions regarding hospital stay -Please call nursing station at [phone] if any nursing or medication questi ons -Return to the emergency room if symptoms worsen Diet: ADA, low sodium Activity: Fall precautions Vital Signs/Physical Exam: Temp Pulse Resp BP Pulse Ox 97.3 F 80 16 157/72 H 93 08/12/23 16:00 08/12/23 16:00 08/12/23 16:00 08/12/23 16:00 08/12/23 16:00 Laboratory Data at Discharge: WBC 11.20 thou/uL (4.3-10.9) H 08/12/23 06:01 Hgb 12.4 g/dL (12.0-15.0) 08/12/23 06:01 Hct 37.5 % (36.0-45.0) 08/12/23 06:01 Plt Count 166 thou/uL (152-406) D 08/12/23 06:01 PT 13.7 SECONDS (9.5-12.5) H 08/09/23 19:33 INR 1.25 08/09/23 19:33 APTT 34.2 SECONDS (24.3-36.9) 08/09/23 19:33 Sodium 138 mEq/L (136-145) 08/12/23 06:01 Potassium 3.8 mEq/L (3.5-5.1) 08/12/23 06:01 BUN 16 mg/dL (7-18) 08/12/23 06:01 Creatinine 0.80 mg/dL (0.55-1.02) 08/12/23 06:01 Glucose 127 mg/dL (74-106) H 08/12/23 06:01 Phosphorus 3.9 mg/dL (2.5-4.9) 08/10/23 03:08 Magnesium 2.0 mg/dL (1.6-2.4) 08/12/23 06:01 Total Bilirubin 1.1 mg/dL (0.2-1.0) H 08/12/23 06:01 AST 83 U/L (15-37) H 08/12/23 06:01 ALT 78 U/L (13-56) H 08/12/23 06:01 Alkaline Phosphatase 124 U/L (45-117) H 08/12/23 06:01 Triglycerides 51 mg/dL (<150) 08/10/23 03:08 Cholesterol 83 mg/dL (<200) 08/10/23 03:08 HDL Cholesterol 34 mg/dL (40-60) L 08/10/23 03:08 Cholesterol/HDL Ratio 2.44 08/10/23 03:08 Home Medications: Amlodipine [Norvasc*] 10 mg PO DAILY@1800 30 Days #30 tab 08/12/23 Aspirin Chewable [Aspirin Chewable*] 81 mg PO DAILY 30 Days #30 tab.chew 08/12/23 Atorvastatin Calcium [Lipitor] 40 mg PO BEDTIME 30 Days #30 tab 08/12/23 Losartan Potassium [Cozaar*] 25 mg PO DAILY 30 Days #30 tab 08/12/23 Metoprolol Tartrate [Lopressor*] 50 mg PO BID 6AM 6PM 30 Days #60 tab 08/12/23 New Medications: Aspirin Chewable [Aspirin Chewable*] 81 mg PO DAILY 30 Days #30 tab.chew Losartan Potassium [Cozaar*] 25 mg PO DAILY 30 Days #30 tab Atorvastatin Calcium [Lipitor] 40 mg PO BEDTIME 30 Days #30 tab Metoprolol Tartrate [Lopressor*] 50 mg PO BID 6AM 6PM 30 Days #60 tab Amlodipine [Norvasc*] 10 mg PO DAILY@1800 30 Days #30 tab Physician Discharge Instructions: Hospital Course: 72 year-old patient with a past medical history of hypertension, probable CHF, and GERD. She has not seen a doctor in greater than 2 years presented with left-sided sharp chest pain. She was evaluated by cardiology, is status post a heart cath Dr Foster 08/11 shows normal coronaries and normal filling pressure. Was noted to have poorly controlled hypertension. Plan to resume blood p ressure medications. Condition improved with resumption of antihypertensive medications. Patient tolerating diet, stable for discharge to home with follow- up appointment with primary care physician. Follow-up with cardiology after discharge PROBLEM: Chest pain Normal heart cath Dr Foster 08/11 shows normal coronaries and normal filling pressure. Resume home medications aspirin 81 mg, Lipitor 40 mg, Norvasc 10 mg, add losartan 25 mg, DC Lasix Instructed patient to keep blood pressure log, bring to cardiology appointment. Migraine Rad/Lab/Micro: USCarotid Artery Bilateral08/09/2023 carotid arteries ultrasound Minimal plaque within the carotid arteries CTA of the chest IMPRESSION: Negative for a pulmonary embolism CT of the head IMPRESSION: No acute intracranial abnormality Lipid panel was unremarkable, HDL was mildly low at 34 Serial troponins were negative Continue home medicines as previously prescribed GOAL: Clear understanding of disease process INSTRUCTIONS: Physician Discharge Instructions: -Follow-up with PCP in 1 to 2 weeks -Please call Dr. Franks at [phone] if any questions regarding hospital stay -Please call nursing station at [phone] if any nursing or medication questions -Return to the emergency room if symptoms worsen Diet: ADA, low sodium Activity: Fall precautions Diet: Low sodium Activity: Fall precautions Followup: Akiko Meadows MD [ACTIVE - CAN ADMIT] - Daniele Foster MD [ACTIVE - CAN ADMIT] - Time spent managing pt's care (in minutes): 55
[2023-08-12 17:50] VITALS: BP 171/74
--- NOTE | 2023-08-13 12:39 | ECHO ---
HEIGHT: 5 ft 3 in WEIGHT: 191 lb 12.8 oz DATE OF STUDY: 08/12/[address]: Judith Dickson 2-DIMENSIONAL: YES M.MODE: YES DOPPLER: YES COLOR FLOW: YES TDS: PORTABLE: YES DEFINITY: BUBBLE STUDY: DIAGNOSIS: CHEST PAIN CARDIAC HISTORY: CATHERIZATION: YES SURGERY: PROSTHETIC VALVE: PACEMAKER: MEASUREMENTS (cm) DIASTOLIC (NORMALS) SYSTOLIC (NORMALS) IVSd 1.1 (0.6-1.2) LA Diam 3.9 (1.9-4.0) LVEF 55-60% LVIDd 5.3 (3.5-5.7) LVIDs 3.6 (2.0-3.5) %FS 32% LVPWd 1.1 (0.6-1.2) Ao Diam 2.5 (2.0-3.7) 2 DIMENSIONAL ASSESSMENT: RIGHT ATRIUM: NORMAL LEFT ATRIUM: NORMAL RIGHT VENTRICLE: NORMAL LEFT VENTRICLE: NORMAL TRICUSPID VALVE: TRACE TRICUSPID REGURGITATION MITRAL VALVE: NORMAL PULMONIC VALVE: NORMAL AORTIC VALVE: NORMAL PERICARDIAL EFFUSION: NONE AORTIC ROOT: NORMAL LEFT VENTRICULAR WALL MOTION: NORMAL DOPPLER/COLOR FLOW: GRADE I DIASTOLIC DYSFUNCTION COMMENTS: 1. NORMAL LEFT VENTRICULAR SYSTOLIC FUNCTION, EJECTION FRACTION 55-60%, NORMAL WALL MOTION 2. GRADE I DIASTOLIC DYSFUNCTION 3. SEVERE PULMONARY HYPERTENSION (RIGHT VENTRICULAR SYSTOLIC PRESSURE GREATER THAN 60 mmHg) TECHNOLOGIST: ASIF ZARATE
== END 2023-08-12 19:55 | disposition home or self-care (01) | DRG 287 ==
LOC: ER 14:11 → ERHOLD 18:06 → 2ND 18:39
PROVIDERS: ADMIT Hospitalist; ATTEND Hospitalist
PROC: 4A023N7 Measurement of Cardiac Sampling and Pressure, Left Heart, Percutaneous Approach (ICD-10-PCS; principal; 2023-08-09)
PROC: B2111ZZ Fluoroscopy of Multiple Coronary Arteries using Low Osmolar Contrast (ICD-10-PCS; 2023-08-09)
DX: I20.0 Unstable angina (principal); E87.6 Hypokalemia; I10 Essential (primary) hypertension; I49.3 Ventricular premature depolarization; D69.6 Thrombocytopenia, unspecified; E78.5 Hyperlipidemia, unspecified; E87.70 Fluid overload, unspecified; K74.60 Unspecified cirrhosis of liver; K21.9 Gastro-esophageal reflux disease without esophagitis; R16.1 Splenomegaly, not elsewhere classified; Z79.82 Long term (current) use of aspirin; Z90.49 Acquired absence of other specified parts of digestive tract; Z85.42 Personal history of malignant neoplasm of other parts of uterus; Z90.710 Acquired absence of both cervix and uterus; Z79.899 Other long term (current) drug therapy
CPT/HCPCS: 36415; 70450; 71045; 71275; 76937; 80048; 80053; 80061; 83735; 83880; 84100; 84443; 84484; 85025; 85610; 85730; 86308; 90732; 93005; 93306; 93458; 93880; 94640; 99152; 99285; C1893; C9113; J0461; J1644; J2001; J2250; J3010; J3475; J7040; J7613; J7644; Q9966; Q9967

== ENCOUNTER 2024-05-20 04:48 | Emergency (ER) | payer OTHER ==
[2024-05-20 05:41] LABS: Absolute Eosinophils 0.6 K/uL (0-0.5); Absolute Monocytes 0.6 K/uL (0.1-1.3); Absolute Neutrophil 6.8 K/uL (1.8-8.0); Basophils % 0.4 % (0-1.3); Eosinophils % 6.2 % (0-4.4); Hematocrit 32.1 % (36.0-45.0); Hemoglobin 10.9 g/dL (12.0-15.0); Lymphocytes % 19.8 % (15.3-44.8); MCH 29.2 pg (27.0-35.0); MCHC 33.9 g/dL (32.0-36.0); MPV 9.1 fL (7.6-11.3); Monocytes % 6.1 % (3.3-12.3); Neutrophils % 67.5 % (41.7-73.7); Platelets 112 thou/uL (152-406); RBC Red Blood Cell Count 3.73 M/uL (3.86-4.86); Red Cell Distribution Width 16.4 % (12.1-15.2)
[2024-05-20 05:50] LABS: PT Prothrombin Time 13.8 SECONDS (9.4-12.5); Protime INR 1.32
[2024-05-20 06:05] LABS: Albumin 2.7 g/dL (3.4-5.0); Albumin/Globulin Ratio 0.5 (1.1-1.8); Anion Gap 9.2 mEq/L (5.0-15.0); Bilirubin Direct 0.5 mg/dL (0-0.2); Bilirubin Total 1.5 mg/dL (0.2-1.0); Globulin 5.2 g/dL (2.3-3.5); Magnesium 1.9 mg/dL (1.6-2.4); Potassium 3.2 mEq/L (3.5-5.1); Protein, Total 7.9 g/dL (6.4-8.2); Troponin High Sensitivity 16.6 pg/mL (<58.9)
[2024-05-20] MEDS ORDERED: CEFTRIAXONE 1000 MG/VIAL ONE (06:07)
[2024-05-20] MEDS ORDERED: LIDOCAINE 1% MPF 5 ML VIAL ONE (06:07)
[2024-05-20] MEDS ORDERED: SMZ./TMP. 800/160 MG TABLET ONE (06:08)
--- NOTE | 2024-05-20 06:09 | RAD REPORT ---
EXAM: XR CHEST 1 VIEW HISTORY: 73 years Female hypertension COMPARISON: None. FINDINGS: LUNGS/PLEURA: The lungs are clear. No pleural effusions or pneumothorax. No pulmonary edema. MEDIASTINUM: The mediastinal silhouette is within normal limits. CARDIAC: Mild cardiomegaly UPPER ABDOMEN: No significant abnormality. BONES: No acute abnormality. LINES/TUBES/OTHER: N/A IMPRESSION: No evidence of acute cardiopulmonary disease. Electronically signed by: Gm Lynn MD 05/20/2024 06:02 AM [facility] Due to temporary technical issues with the PACS/[employer] reporting system, reports are being erica d by the in-house radiologist without review as a courtesy to ensure prompt reporting the interpreting radiologist is fully responsible for the content of the report. Transcribed Date/Time: 05/20/2024 6:08 AM
--- NOTE | 2024-05-20 07:09 | EDPHYS ---
Physician Documentation [facility] Name: Liana Mcdonald Age: 73 yrs Sex: Female : 1950 Arrival Date: 05/20/2024 Time: 04:48 Bed 3 Private MD: ED Physician Leonardo Cuadra HPI: 05/20 05:00 This 73 yrs old Female presents to ER via Unassigned with complaints of Boil sp4 - boil at the back of the head + headaches. 05/21 02:56 Patient is a very pleasant 73-year-old female with history of uncontrolled hypertension sp4 presents with acute onset posterior scalp boil or infection. Patient states several days she developed thickening pain tenderness to posterior scalp. Hypertensive on arrival. Historical: - PMHx: 05/20 05:04 Hypertensive disorder; aa10 - Immunization history:: Adult Immunizations up to date. - Infectious Disease History:: Denies. - Social history:: Smoking status: unknown. - Family history:: not pertinent. ROS: 05/21 02:58 Constitutional: Negative for fever, chills, and weight loss, positive posterior scalp sp4 pain tenderness and swelling All other systems are negative, Exam: 02:58 Constitutional: This is a well developed, well nourished patient who is awake, alert, sp4 and in no acute distress. Head/Face: Normocephalic, atraumatic. There is developing small posterior scalp abscess with redness tenderness and small amount of purulence. At this time nondrainable. Eyes: Pupils equal round and reactive to light, extra-ocular motions intact. Lids and lashes normal. Conjunctiva and sclera are not injected. Cornea within normal limits. Periorbital areas with no swelling, redness, or edema. ENT: Nares patent. No nasal discharge, no septal abnormalities noted. Tympanic membranes are normal and external auditory canals are clear. Oropharynx with no redness, swelling, or masses, exudates, or evidence of obstruction, uvula midline. Mucous membranes moist. Neck: Trachea midline, no thyromegaly or masses palpated, and no cervical lymphadenopathy. Supple, full range of motion without nuchal rigidity, or vertebral point tenderness. Chest/axilla: Normal chest wall appearance and motion. Nontender with no deformity. No lesions are appreciated. Cardiovascular: Regular rate and rhythm with a normal S1 and S2. No gallops, murmurs, or rubs. Normal PMI, no JVD. No pulse deficits. Respiratory: Lungs have equal breath sounds bilaterally, clear to auscultation and percussion. No rales, rhonchi or wheezes noted. No increased work of breathing, no retractions or nasal flaring. Abdomen/GI: Soft, with normal bowel sounds. No distension or tympany. No guarding or rebound. No evidence of tenderness throughout. Back: No spinal tenderness. No costovertebral tenderness. Skin: Warm, dry with normal turgor. Normal color with no rashes, no lesions, and no evidence of cellulitis. MS/ Extremity: Pulses equal, no cyanosis. Neurovascular intact. Full, normal range of motion. Neuro: Awake and alert, GCS 15, oriented to person, place, time, and situation. Cranial nerves II-XII grossly intact. Motor strength 5/5 in all extremities. Sensory grossly intact. Psych: Awake, alert, with orientation to person, place and time. Behavior, mood, and affect are within normal limits 06:25 ECG was reviewed by the Attending Physician. EKG 0 646 EKG reveals normal sinus sp4 rhythm Vital Signs: 05/20 05:00 BP 222 / 109; Pulse 100; Resp 24; Temp 97.9; Pulse Ox 99% on R/A; aa10 05:34 BP 166 / 77; Pulse 91; Resp 17; Pulse Ox 97% on R/A; dd2 06:15 BP 165 / 75; Pulse 84; Resp 16; Pulse Ox 96% on R/A; dd2 Rogers Coma Score: 05:34 Eye Response: spontaneous(4). Motor Response: obeys commands(6). Verbal Response: dd2 oriented(5). Total: 15. 05/21 02:58 Eye Response: spontaneous(4). Motor Response: obeys commands(6). Verbal Response: sp4 oriented(5). Total: 15. MDM: 05/20 05:07 Medical Screening Exam initiated sp4 05/21 02:57 Differential diagnosis: abscess, allergic reaction, cellulitis, insect bite. Data sp4 reviewed: vital signs, nurses notes, EMS record, lab test result(s), radiologic studies, plain films. Consideration of Admission/Observation Escalation of care including admission/observation considered. ED course: EXAM: XR CHEST 1 VIEW HISTORY: 73 years Female hypertension COMPARISON: None. FINDINGS: LUNGS/PLEURA: The lungs are clear. No pleural effusions or pneumothorax. No pulmonary edema. MEDIASTINUM: The mediastinal silhouette is within normal limits. CARDIAC: Mild cardiomegaly UPPER ABDOMEN: No significant abnormality. BONES: No acute abnormality. LINES/TUBES/OTHER: N/A IMPRESSION: No evidence of acute cardiopulmonary disease. . ED course: Small developing abscess to the posterior scalp occipital area is not dangerous. At this time no indication for drainage. Patient advised Bactrim twice a day for 10 days. Again abscess is not drainable at this time. Advised to the patient return in case of worsening abscess. . ED course: Patient has further uncontrolled hypertension. Workup today does not reveal any sign of kidney injury. Will initiate antihypertensive.. 05/20 05:07 Order name: Basic Metabolic Panel; Complete Time: 06:49 sp4 05/20 05:07 Order name: CBC with Diff; Complete Time: 06:49 sp4 05/20 05:07 Order name: LFT's; Complete Time: 06:49 sp4 05/20 05:07 Order name: Magnesium; Complete Time: 06:49 sp4 05/20 05:07 Order name: NT PRO-BNP; Complete Time: 06:49 sp4 05/20 05:07 Order name: PT-INR; Complete Time: 06:49 sp4 05/20 05:07 Order name: Troponin HS; Complete Time: 06:49 sp4 05/20 05:07 Order name: XRAY Chest (1 view) sp4 05/20 05:07 Order name: EKG; Complete Time: 05:07 sp4 05/20 05:07 Order name: Cardiac monitoring; Complete Time: 06:13 sp4 05/20 05:07 Order name: EKG - Nurse/Tech; Complete Time: 06:47 sp4 05/20 05:07 Order name: IV Saline Lock; Complete Time: 05:36 sp4 05/20 05:07 Order name: Labs collected and sent; Complete Time: 05:36 sp4 05/20 05:07 Order name: O2 Per Protocol; Complete Time: 05:36 sp4 05/20 05:07 Order name: O2 Sat Monitoring; Complete Time: 05:36 sp4 EC/19 06:46 Rate is 80 beats/min. Rhythm is regular, Normal Sinus Rhythm. QRS [place] is Normal. MO sp4 interval is normal. QRS interval is normal. QT interval is prolonged. No Q waves. T waves are Normal. No ST changes noted. Clinical impression: No evidence of ischemia. Interpreted by me. Reviewed by me. Administered Medications: 05:36 Not Given (Physician Discretion): clonidine0.2 mg PO once dd2 06:21 Drug: Trimethoprim-Sulfamethoxazole PO (160 mg-800 mg (DS) 1 tablet PO once Route: PO; dd2 06:21 Drug: Rocephin (cefTRIAXone) IM 1 grams IM once Route: IM; Site: right ventrogluteal; dd2 Disposition Summary: 05/20/24 07:09 Discharge Ordered Notes: Location: Home sp4 Problem: new sp4 Symptoms: have improved sp4 Condition: Stable sp4 Diagnosis - Acute posterior Scalp abscess sp4 - Hypertension essential sp4 Followup: sp4 - With: Dejan Finley DO - When: 7 - 10 days - Reason: Recheck today's complaints Discharge Instructions: - Discharge Summary Sheet sp4 - Skin Abscess, [id number] sp4 - Hypertension, Adult, [id number] sp4 Forms: - Patient Portal Instructions sp4 Prescriptions: - losartan 50 mg Oral tablet - take 1 tablet ORAL route every morning; 90 tablet; Refills: 0, Product sp4 Selection Permitted - Bactrim DS 800-160 mg Oral Tablet - take 1 tablet ORAL route every 12 hours for 10 days; 20 tablet; Refills: 0, sp4 Product Selection Permitted Signatures: Dispatcher [employer] Leonardo Garcia MD MD sp4 RAMO WINTER RN RN dd2 Slava Yao RN RN aa10
--- NOTE | 2024-05-20 07:09 | ER ---
Nurse's Notes [facility] Name: Liana Mcdonald Age: 73 yrs Sex: Female : 1950 Arrival Date: 05/20/2024 Time: 04:48 Bed 3 Private MD: Diagnosis: Acute posterior Scalp abscess ;Hypertension essential Presentation: 05/20 05:00 Chief complaint: EMS states: brought by EMS from home, on account general feeling of aa10 unwell, boil at the back of the head which she noticed two weeks ago, when she back back from a from out of town, patient attributed the boil to the shampoo she used at this said location .patient blood pressure was found to be elevated on presentation at 222/109mmhg, she denied being hypertensive or diabetic and doesn't use any medication, she denied any allergies.she verbalizes headaches ,pain and feeling of unwell. Coronavirus screen: Client denies travel out of the [place] in the last 14 days. Ebola Screen: Patient negative for fever greater than or equal to 101.5 degrees Fahrenheit, and additional compatible Ebola Virus Disease symptoms Patient denies exposure to infectious person. Patient denies travel to an Ebola-affected area in the 21 days before illness onset. No symptoms or risks identified at this time. Initial Sepsis Screen: Does the patient meet any 2 criteria? No. Patient's initial sepsis screen is negative. Does the patient have a suspected source of infection? No. Patient's initial sepsis screen is negative. Risk Assessment: Do you want to hurt yourself or someone else? Patient reports no desire to harm self or others. Onset of symptoms was May 02, 2024. 05:00 Method Of Arrival: EMS: [facility] aa10 05:00 Acuity: DEMETRIA 3 aa10 Triage Assessment: 05:05 General: Appears in no apparent distress. comfortable, well groomed, well developed, aa10 Behavior is cooperative, appropriate for age, anxious, restless, Reports feeling ill for > 3 days. Pain: Complains of pain in scalp Pain does not radiate. Pain currently is 9 out of 10 on a pain scale. at worst was 10 out of 10 on a pain scale. level that patient reports is acceptable is 0 out of 10 on a pain scale. Quality of pain is described as aching, throbbing, Pain began gradually, Is continuous, Alleviated by nothing. Aggravated by increased activity, weight bearing, Noted to be grimacing, Also complains of sleeplessness. EENT: No deficits noted. Ear canal clear on right ear and left ear. Neuro: No deficits noted. Level of Consciousness is awake, alert, obeys commands. Cardiovascular: No deficits noted. Historical: - PMHx: 05:04 Hypertensive disorder; aa10 - Immunization history:: Adult Immunizations up to date. - Infectious Disease History:: Denies. - Social history:: Smoking status: unknown. - Family history:: not pertinent. Screenin:34 [facility] ED Fall Risk Assessment (Adult) History of falling in the last 3 months, dd2 including since admission No falls in past 3 months (0 pts) Confusion or Disorientation No (0 pts) Intoxicated or Sedated No (0 pts) Impaired Gait No (0 pts) Mobility Assist Device Used No (0 pt) Altered Elimination No (0 pt) Score/Fall Risk Level 0 - 2 = Low Risk Oriented to surroundings, Maintained a safe environment, Educated pt \T\ family on fall prevention, incl call for assistance when getting out of bed, Assessed \T\ reinforced patient's understanding of fall precautions, Hourly rounding (assess needs \T\ fall precautionary measures) done. Abuse screen: Denies threats or abuse. Nutritional screening: No deficits noted. Tuberculosis screening: No symptoms or risk factors identified. Assessment: 06:14 Reassessment: see triage assessment. General: Appears in no apparent distress. aa10 Vital Signs: 05:00 BP 222 / 109; Pulse 100; Resp 24; Temp 97.9; Pulse Ox 99% on R/A; aa10 05:34 BP 166 / 77; Pulse 91; Resp 17; Pulse Ox 97% on R/A; dd2 06:15 BP 165 / 75; Pulse 84; Resp 16; Pulse Ox 96% on R/A; dd2 Danica Coma Score: 05:34 Eye Response: spontaneous(4). Motor Response: obeys commands(6). Verbal Response: dd2 oriented(5). Total: 15. 05/21 02:58 Eye Response: spontaneous(4). Motor Response: obeys commands(6). Verbal Response: sp4 oriented(5). Total: 15. ED Course: 05/20 04:58 Patient arrived in ED. rv1 05:00 Leonardo Cuadra MD is Attending Physician. sp4 05:04 Triage completed. aa10 05:32 RAMO WINTER, RN is Primary Nurse. dd2 05:32 Arm band placed on right wrist. dd2 05:32 No provider procedures requiring assistance completed. Initial lab(s) drawn, by al, dd2 sent to lab. Inserted saline lock: 22 gauge in right upper arm, using aseptic technique. Blood collected. Flushed with 10 mL NS. 05:36 Basic Metabolic Panel Sent. dd2 05:36 CBC with Diff Sent. dd2 05:36 LFT's Sent. dd2 05:36 Magnesium Sent. dd2 05:36 NT PRO-BNP Sent. dd2 05:36 PT-INR Sent. dd2 05:36 Troponin HS Sent. dd2 05:37 Patient has correct armband on for positive identification. Bed in low position. Call dd2 light in reach. Side rails up X2. Client placed on continuous cardiac and pulse oximetry monitoring. NIBP monitoring applied. golf club weighter on. Door closed. Noise minimized. Warm blanket given. Pillow given. Verbal reassurance given. 05:37 Patient maintains SpO2 saturation greater than 95% on room air. dd2 05:53 XRAY Chest (1 view) In Process Unspecified. EDMS 06:47 EKG done, by ED staff, reviewed by Leonardo Cuadra MD. dd2 07:08 Dejan Finley DO is Referral Physician. sp4 07:54 IV discontinued, intact, bleeding controlled, No redness/swelling at site. ld1 Administered Medications: 05:36 Not Given (Physician Discretion): clonidine0.2 mg PO once dd2 06:21 Drug: Trimethoprim-Sulfamethoxazole PO (160 mg-800 mg (DS) 1 tablet PO once Route: PO; dd2 06:21 Drug: Rocephin (cefTRIAXone) IM 1 grams IM once Route: IM; Site: right ventrogluteal; dd2 Medication: 05:34 VIS not applicable for this client. dd2 Outcome: 07:09 Discharge ordered by . sp4 07:53 Discharged to home ambulatory, ld1 07:53 Condition: stable 07:53 Discharge instructions given to patient, Instructed on discharge instructions, follow up and referral plans. Demonstrated understanding of instructions, follow-up care, medications, Prescriptions given X 2, 07:54 Patient left the ED. ld1 Signatures: Dispatcher [employer] EDMS Michelle Tidwell RN RN ld1 Ximena Greenwood1 Leonardo Cuadra MD MD sp4 RAMO WINTER RN RN dd2 Slava Yao RN RN aa10
[2024-05-20 09:27] VITALS: TEMP 97.9
[2024-05-20 09:29] VITALS: BP 165/75; O2SAT 96
== END 2024-05-20 07:54 | disposition home or self-care (01) ==
LOC: ER 04:48
DX: L02.811 Cutaneous abscess of head [any part, except face] (principal); I10 Essential (primary) hypertension
CPT/HCPCS: 93005; 85025; 80048; 36415; 83735; 85610; 80076; 84484; 83880; 71045; J2003; J0696